=== PATIENT | male | born 1970 | race Caucasian/White ===

== ENCOUNTER 2024-10-22 06:56 | Day surgery (SDC) | payer BC ==
[2024-09-24 10:03] VITALS: BMI 29.1
[2024-10-22] MEDS ORDERED: Bupivacaine/Epinephrine 0.25% 30 ML VIAL ONE (09:28)
[2024-10-22] MEDS ORDERED: Lidocaine 2% 6 ML (Jelly) SYR ONE (09:28)
[2024-10-22] MEDS ORDERED: PROPOFOL 20 ML ONE (09:28)
[2024-10-22] MEDS ORDERED: Lidocaine 1% PF 5 ML VIAL ONE (09:29)
[2024-10-22] MEDS ORDERED: Ondansetron PF 4 MG/2 ML Vial ONE (09:51)
[2024-10-22] MEDS ORDERED: HYDROcodone/Acetaminophen 5/325 mg Tablet ONE (11:18)
== END 2024-10-22 11:55 | disposition home or self-care (01) ==
LOC: CSHSDC 06:56
PROVIDERS: ATTEND Surgery
PROC: 065Y0ZC Destruction of Hemorrhoidal Plexus, Open Approach (ICD-10-PCS; principal; 2024-10-22)
DX: K64.3 Fourth degree hemorrhoids (principal); K64.4 Residual hemorrhoidal skin tags
CPT/HCPCS: 88304; J0694; J1100; J2405; J2704; J3010

== ENCOUNTER 2025-02-25 06:42 | Day surgery (SDC) | payer BC ==
[2025-02-18 09:00] VITALS: BMI 28.5
[2025-02-25] MEDS ORDERED: PROPOFOL 40 ML ONE (08:26)
== END 2025-02-25 09:40 | disposition home or self-care (01) ==
LOC: CSHSDC 06:42
PROVIDERS: ATTEND Surgery
PROC: 0DJD8ZZ Inspection of Lower Intestinal Tract, Via Natural or Artificial Opening Endoscopic (ICD-10-PCS; principal; 2025-02-25)
DX: Z12.11 Encounter for screening for malignant neoplasm of colon (principal); K57.30 Diverticulosis of large intestine without perforation or abscess without bleeding; Z86.0100 Personal history of colon polyps, unspecified
CPT/HCPCS: J2704